=== PATIENT | male | born 1945 | race Caucasian/White ===

== ENCOUNTER → 2020-11-27 | Outpatient (CLI) | payer OTHER ==
[~2020-11-27] MED LIST: AMIODARONE HCL400 MG PO; AMIODARONE PO; ATENOLOL 25 MG25 M1 PO; AUGMENTIN 875-1 EACH PO; FISH OIL 500 M1 EACH PO; HYDROCHLOROTHIA25 M1 PO; LANTUS SUBQ; LASIX 40 MG TAB40 MG PO; MULTIVITAMINS1 EAC7 PO; NORCO 5-325 TA1 EACH PO; NOVOLOG100 UNIT/1 SQ; PRAVASTATIN SOD10 MG PO; VITAMIN B-121000 MC2 SUBLING; VITAMIN D3250 MC1 PO; XARELTO20 MG PO
== END ==
LOC: PET 09:15
PROVIDERS: ATTEND Internal Medicine Critical Care Medicine
DX: R91.8 Other nonspecific abnormal finding of lung field (principal); I51.7 Cardiomegaly; J98.4 Other disorders of lung; R59.0 Localized enlarged lymph nodes; Z98.890 Other specified postprocedural states